=== PATIENT | female | born 1980 | race Caucasian/White ===

== ENCOUNTER → 2016-10-11 | Outpatient (CLI) | payer OTHER, MEDICAID ==
--- NOTE | 2016-10-11 18:46 | US ---
Pelvic Ultrasound October 11, 2016 Indication: 36-year-old woman with intermittent pain. Technique: Transabdominal and transvaginal imaging. Comparison: CT abdomen and pelvis dated June 10, 2016. Findings: Transabdominal Imaging: The anteverted uterus is normal size measuring 6.6 cm in length x 4.2 x 2.4 cm. No adnexal mass or free fluid. Transvaginal Imaging: The ovaries are normal size with small peripheral follicles and normal blood f low on Color Doppler imaging. No ovarian cyst or adnexal mass. The right ovary measures 3.1 x 2.1 x 2 .1 cm. The left ovary measures 2.5 x 2.0 x 1.5 cm. Normal homogeneous myometrium with benign nabothi an cysts in the lower uterine segment and cervix. No uterine leiomyoma. Endometrial lining is thin (3 mm). Impression: 1. Normal ovaries. No ovarian cyst, adnexal mass, torsion or free fluid. 2. Normal uterus.
== END ==
LOC: FIMAGING 12:27
PROVIDERS: ATTEND Obstetrics & Gynecology Gynecology
DX: R10.30 Lower abdominal pain, unspecified (principal)

== ENCOUNTER → 2017-05-16 | Outpatient (CLI) | payer OTHER, MEDICAID | LOC: GIMAGING 13:12 | PROVIDERS: ATTEND Nurse Practitioner | DX: R06.02 Shortness of breath (principal) ==

== ENCOUNTER → 2017-05-28 | Outpatient (CLI) | payer OTHER, MEDICAID | LOC: BHFA 09:30 | PROVIDERS: ATTEND Internal Medicine Cardiovascular Disease | DX: R00.0 Tachycardia, unspecified (principal) ==

== ENCOUNTER 2018-08-30 12:29 | Emergency (ER) | payer OTHER, MEDICAID ==
[2018-08-30] MEDS ORDERED: NS 1,000 ML IV ONE (13:12)
[2018-08-30 13:43] LABS: PLATELET COUNT 259 10^3/uL (150-400)
[2018-08-30] MEDS ORDERED: MECLIZINE HCL 25 MG TAB ONE (14:38)
[2018-08-30] MEDS ORDERED: MECLIZINE HCL 25 MG TAB PO ONE (14:40)
--- NOTE | 2018-08-30 14:53 | EDPHY ---
H & P Time Seen by Provider: 08/30/18 14:46 HPI/ROS: HPI Lightheaded. 37-year-old female by private vehicle with her mother. This patient reports that through today she has felt lightheaded. She describes this is worse when she is sitting and then stands up but also worse when she is laying down. She denies feeling vertigo. She denies any associated palpitations, rapid heart rate, headache, shortness of breath or chest pain. No loss of sensation or weakness in her extremities. She reports that she was at [employer] [facility] and had an episode where she felt lightheaded felt weakness in her legs went to the ground, knocked over a displaced stand. She was taken to an urgent care by her mother. They told her to go to the emergency department. Her mother then brought her to the emergency department. ROS: Constitutional: No fever, no chills. As above. Eyes: No discharge. No changes in vision. ENT: No sore throat. No nasal congestion or rhinorrhea. Respiratory: No cough. No shortness of breath. Cardiac: No chest pain, no palpitations. Gastrointestinal: No abdominal pain, no vomiting, no diarrhea. Genitourinary: No hematuria. No dysuria or increased frequency with urination. Musculoskeletal: No back pain. No neck pain. No myalgias or arthralgias. Skin: No rashes. Neurological: No headache. No focal weakness or altered sensation. Past medical history: Tachycardia, bipolar, PTSD, developmental delay, uterine ablation. Social history: She lives with her mother who is present with her in the emergency department. Nonsmoker. No alcohol. No IV drugs or street drugs. Physical Exam: General Appearance: Alert, no distress. This patient is responding to questions appropriately and in full sentences. This patient appears well- hydrated and well-nourished. Eyes: Pupils equal and round and reactive to light at 3-2 mm bilaterally. no pallor or injection. No lid edema, erythema or injection. No nystagmus. ENT, Mouth: Mucous membranes are moist. The pharyngeal tissues are unremarkable. No edema or swelling. No asymmetry suggestive of abscess. No erythema or exudates. No tongue lacerations or abrasions. Respiratory: There are no retractions, lungs are clear to auscultation with good air movement bilaterally. Cardiovascular: Regular rate and rhythm. No murmur. Gastrointestinal: Abdomen is soft and nontender, no masses, bowel sounds normal. No focal tenderness at McBurney's point. No Kenney sign. Neurological: Motor sensory function is grossly intact. Cranial nerves are normal. Gait is normal. Cerebellar function [id number] intact. Skin: Warm and dry, no rashes. Musculoskeletal: Neck is supple and nontender. Extremities are symmetrical. All joints range without pain or impingement. Psychiatric: No agitation. No depression. Database: EKG: EKG time is 1:00 p.m.; EKG shows a narrow complex sinus tachycardia with a ventricular rate of 102. Possible left atrial enlargement The SD, QRS, QT intervals are within normal limits. There are no ST-T wave changes indicative of ischemic or injury pattern. No evidence of right heart strain. No evidence of WPW, Brugada syndrome, hypertrophic cardiomyopathy. Interpreted by me. Imaging: Procedures: Emergency department course: Triage vital signs reviewed. Borderline tachycardia. Vital signs are otherwise normal. She is afebrile. IV was placed. She was placed on a nurse monitoring. EKG obtained and reviewed by myself. She was started on IV normal saline with 500 cc to 1 L to be given over the next hour. She was also given 25 mg of meclizine orally. This was done secondary to possible vertigo from triage. 3:20 p.m., the patient was re-evaluated, resting comfortably at this time. Repeat neurologic Assessment is nonfocal. She is up and ambulatory with a normal gait. She has been drinking fluids in the emergency department. She denies any symptoms at this time. Results of her emergency department workup were discussed with her and her mother who is at bedside. I discussed the differential diagnosis with the 2 of them. She feels comfortable going home with her mother at this time. All of their questions were answered. Follow-up and return to emergency department precautions were discussed. The patient was discharged home in good condition with her mother. Differential Diagnosis: The differential diagnosis on this patient includes but is not limited to vasovagal near sent, noncardiac near syncope, medication reaction. Arrhythmia, pulmonary embolism, subarachnoid hemorrhage, acute coronary syndrome, CVA unlikely. This represents a partial list of diagnoses considered. These considerations are based on history, physical exam, past history, reassessment and diagnostic testing. Smoking Status: Never smoked Constitutional: Initial Vital Signs Temperature (C) 36.7 C 08/30/18 12:37 Heart Rate 103 H 08/30/18 12:37 Respiratory Rate 18 08/30/18 12:37 Blood Pressure 139/76 H 08/30/18 12:37 O2 Sat (%) 98 08/30/18 12:37 O2 Delivery Mode Room Air Allergies/Adverse Reactions: amoxicillin [From Augmentin] Allergy (Verified 08/30/18 12:35) clavulanic acid [From Augmentin] Allergy (Verified 08/30/18 12:35) Penicillins Allergy (Verified 08/30/18 12:35) Sulfa (Sulfonamide Antibiotics) Allergy (Verified 05/09/16 13:36) Home Medications: Medication Instructions Recorded Desmopressin [DDAVP 0.1 mg (RX)] 0 mg PO BID 01/29/13 Sodium Fluoride [Prevident] 0 ml DT 01/29/13 ZONISAMIDE 0 mg PO 01/29/13 risperiDONE [Risperdal] 0 mg PO 01/29/13 Advair 250/50 (*) 05/09/16 Albuterol 05/09/16 Bcp 05/09/16 Bystolic 05/09/16 OXcarbazepine 05/09/16 Ondansetron Odt [Zofran Odt] 4 - 8 mg PO Q4PRN PRN #4 tab 05/09/16 Prevacid 05/09/16 Metformin HCl 08/30/18 Montelukast Sodium 08/30/18 OXcarbazepine 08/30/18 Ventolin Hfa 08/30/18 Medical Decision Making - Data Points Laboratory Results: Laboratory Results 08/30/18 13:17 08/30/18 13:17 08/30/18 08/30/18 08/30/18 14:48 13:17 13:17 WBC RBC Hgb Hct MCV MCH MCHC RDW Plt Count MPV Neut % (Auto) Lymph % (Auto) [place] % (Auto) Eos % (Auto) Baso % (Auto) Nucleat RBC Rel Count Absolute Neuts (auto) Absolute Lymphs (auto) Absolute Monos (auto) Absolute Eos (auto) Absolute Basos (auto) Absolute Nucleated RBC Immature Gran % Immature Gran # Sodium 135 mEq/L mEq/L (135-145) Potassium 3.8 mEq/L mEq/L (3.3-5.0) Chloride 101 mEq/L mEq/L (97-110) Carbon Dioxide 22 mEq/l mEq/l (22-31) Anion Gap 12 mEq/L mEq/L (6-14) BUN 18 mg/dL mg/dL (7-23) Creatinine 0.7 mg/dL mg/dL (0.6-1.0) Estimated GFR > 60 Glucose 127 mg/dL H mg/dL (70-100) Calcium 9.2 mg/dL mg/dL (8.5-10.4) Beta HCG, Qual NEGATIVE Urine Color YELLOW Urine Appearance MODERATELY TURBID Urine pH 7.0 (5.0-7.5) Ur Specific [place] 1.016 (1.002-1.030) Urine Protein NEGATIVE (NEGATIVE) Urine Ketones NEGATIVE (NEGATIVE) Urine Blood NEGATIVE (NEGATIVE) Urine Nitrate NEGATIVE (NEGATIVE) Urine Bilirubin NEGATIVE (NEGATIVE) Urine Urobilinogen NEGATIVE EU EU (0.2-1.0) Ur Leukocyte Esterase NEGATIVE (NEGATIVE) Urine RBC 1-3 /hpf /hpf (0-3) Urine WBC 1-3 /hpf /hpf (0-3) Ur Epithelial Cells TRACE /lpf /lpf (NONE-1+) Amorphous Sediment PRESENT /hpf /hpf (NONE-1+) Urine Mucus TRACE /lpf /lpf (NONE-1+) Urine Glucose NEGATIVE (NEGATIVE) 08/30/18 13:17 WBC 5.19 10^3/uL 10^3/uL (3.80-9.50) RBC 4.88 10^6/uL 10^6/uL (4.18-5.33) Hgb 14.2 g/dL g/dL (12.6-16.3) Hct 42.3 % % (38.0-47.0) MCV 86.7 fL fL (81.5-99.8) MCH 29.1 pg pg (27.9-34.1) MCHC 33.6 g/dL g/dL (32.4-36.7) RDW 13.2 % % (11.5-15.2) Plt Count 259 10^3/uL 10^3/uL (150-400) MPV 10.9 fL fL (8.7-11.7) Neut % (Auto) 76.1 % H % (39.3-74.2) Lymph % (Auto) 17.1 % % (15.0-45.0) [place] % (Auto) 6.0 % % (4.5-13.0) Eos % (Auto) 0.0 % L % (0.6-7.6) Baso % (Auto) 0.8 % % (0.3-1.7) Nucleat RBC Rel Count 0.0 % % (0.0-0.2) Absolute Neuts (auto) 3.95 10^3/uL 10^3/uL (1.70-6.50) Absolute Lymphs (auto) 0.89 10^3/uL L 10^3/uL (1.00-3.00) Absolute Monos (auto) 0.31 10^3/uL 10^3/uL (0.30-0.80) Absolute Eos (auto) 0.00 10^3/uL L 10^3/uL (0.03-0.40) Absolute Basos (auto) 0.04 10^3/uL 10^3/uL (0.02-0.10) Absolute Nucleated RBC 0.00 10^3/uL 10^3/uL (0-0.01) Immature Gran % 0.0 % % (0.0-1.1) Immature Gran # 0.00 10^3/uL 10^3/uL (0.00-0.10) Sodium Potassium Chloride Carbon Dioxide Anion Gap BUN Creatinine Estimated GFR Glucose Calcium Beta HCG, Qual Urine Color Urine Appearance Urine pH Ur Specific [place] Urine Protein Urine Ketones Urine Blood Urine Nitrate Urine Bilirubin Urine Urobilinogen Ur Leukocyte Esterase Urine RBC Urine WBC Ur Epithelial Cells Amorphous Sediment Urine Mucus Urine Glucose Medications Given: Discontinued Medications Sodium Chloride (Ns) 1,000 mls @ 0 mls/hr IV EDNOW ONE; Wide Open PRN Reason: Protocol Stop: 08/30/18 13:13 Last Admin: 08/30/18 13:16 Dose: 1,000 mls Meclizine HCl (Meclizine Hcl) 25 mg PO EDNOW ONE Stop: 08/30/18 14:41 Last Admin: 08/30/18 14:45 Dose: 25 mg Departure - Departure Disposition: Home, Routine, Self-Care Clinical Impression: Lightheaded, Near syncope Condition: Good Instructions: Near Syncope (ED), Lightheadedness (ED) Additional Instructions: Read and follow provided instructions. Keep yourself well hydrated. Drink lots of fluids. Follow-up with your primary care physician on Saturday or Saturday of this coming week as discussed. Call their office on Saturday morning. Explained this is for an emergency department follow-up. Your blood work did not show any significant abnormalities. Your EKG showed a slight elevation of your heart rate but otherwise no significant abnormalities. Continue taking your medication as prescribed. Return to the emergency department for worsening symptoms, fainting, loss of sensation or weakness in her extremities, worsening headache, palpitations, chest pain, shortness of breath or other serious concerns. If you are asymptomatic on Saturday going into Saturday and he wished to go to work I think that is okay. Referrals: Chago Vee MD [Primary Care Provider] - As per Instructions
--- NOTE | 2018-08-30 14:58 | CPEKG ---
Test Reason : OPEN Blood Pressure : / mmHG Vent. Rate : 102 BPM Atrial Rate : 101 BPM P-R Int : 182 ms QRS Dur : 087 ms QT Int : 355 ms P-R-T Axes : 053 018 053 degrees QTc Int : 463 ms Sinus tachycardia Probable left atrial enlargement Confirmed by Mikel Dutton ([id number]) on 08/30/2018 2:57:42 PM Referred By: Confirmed By:Mikel Dutton
[2018-08-30 15:52] VITALS: BP 112/77
== END 2018-08-30 15:52 | disposition home or self-care (01) ==
DX: R42 Dizziness and giddiness (principal); R55 Syncope and collapse; E86.9 Volume depletion, unspecified

== ENCOUNTER → 2018-12-06 | Outpatient (CLI) | payer OTHER, MEDICAID | LOC: EDUNIT# 12-02 14:49 → GIMAGING 17:24 | PROVIDERS: ATTEND Nurse Practitioner Family | DX: R05 Cough (principal) | CPT/HCPCS: 71046-PO ==